=== PATIENT | female | born 1950 | race Caucasian/White ===

== ENCOUNTER → 2016-12-02 | Outpatient (CLI) | payer MEDICARE, OTHER ==
[~2016-12-02] MED LIST: AMBI10TA PO; BUTA1CAP PO; EFFE150C PO; GABA400C5 PO; IMIT100T PO; LISI-515 PO; MELO-1 PO; NAPR220T95 PO; RANI150T PO; TRAZ150T75 PO
[2016-12-02 13:14] LABS: AUTOMATED NEUTROPHIL # 3.6 TH/MM3 (1.8-7.7); BASOPHIL # 0.1 TH/MM3 (0-0.2); BASOPHIL % 0.8 % (0.0-2.0); EOSINOPHIL # 0.4 TH/MM3 (0-0.4); EOSINOPHIL % 6.5 % (0.0-4.0); HEMATOCRIT 40.6 % (35.0-46.0); HEMO FLAGS DIFF FINAL; LYMPH % 31.1 % (9.0-44.0); LYMPHOCYTE # 2.1 TH/MM3 (1.0-4.8); MEAN CELL VOLUME 90.7 FL (80.0-100.0); MEAN CORPUSCULAR HEMOGLOBIN 30.2 PG (27.0-34.0); MEAN CORPUSCULAR HGB CONC 33.3 % (32.0-36.0); MONO % 6.2 % (0.0-8.0); NEUT % 55.4 % (16.0-70.0); PLATELET COUNT 228 TH/MM3 (150-450); RED BLOOD COUNT 4.47 MIL/MM3 (4.00-5.30); RED CELL DISTRIBUTION WIDTH 15.4 % (11.6-17.2); WHITE BLOOD COUNT 6.6 TH/MM3 (4.0-11.0)
[2016-12-02 13:18] LABS: BACTERIA, URINE RARE /hpf; BLOOD, URINE NEG (NEG); GLUCOSE,URINE NEG (NEG); KETONE, URINE NEG (NEG); MUCUS URINE FEW /lpf (OCC); NITRITE,URINE NEG (NEG); SQUAMOUS EPITHELIAL CELL URINE 3 /hpf (0-5); URINE COLOR YELLOW (YELLW/STRAW)
[2016-12-02 13:31] LABS: BICARBONATE 30.1 MEQ/L (21.0-32.0); POTASSIUM 4.5 MEQ/L (3.5-5.1)
== END ==
LOC: CPRE 11:59
PROVIDERS: ATTEND Obstetrics & Gynecology
DX: Z01.812 Encounter for preprocedural laboratory examination (principal); R10.2 Pelvic and perineal pain
CPT/HCPCS: 36415; 80048; 81001; 85025

== ENCOUNTER → 2016-12-08 | Day surgery (SDC) | payer MEDICARE, OTHER ==
[~2016-12-08] VITALS: Ht 149.9 cm; Wt 93.6 kg
[~2016-12-08] MED LIST changes: +BUPIVACAINE HCL PF 0.5% 30 ML VIAL ONE; +BUPIVACAINE/EPINEPHRINE 0.5% PF 30 ML VIAL INFIL ONE; +BUPIVACAINE/EPINEPHRINE 0.5% PF 30 ML VIAL ONE; +DEXAMETHASONE SOD PHOS 4 MG/ML VIAL ONE; +DO NOT ADM ANY ANTICOAGULANT DRUGS XX PRN; +FAMOTIDINE 20 MG/2 ML VIAL ONE; +INSULIN HUMAN REGULAR 1,000 UNITS/10 ML VIAL SQ PRN; +LACTATED RINGER'S 1000 ML INJ 1,000 ML IV ONE; +LACTATED RINGER'S 1000 ML INJ 2,000 ML IV ONE; +LACTATED RINGER'S 1000 ML IV SCH; +METOPROLOL TARTRATE 25 MG TAB PO PRN; +MIDAZOLAM HCL 2 MG/2 ML VIAL ONE; +NEOSTIGMINE 3 MG/3 ML SYR IV ONE; +ONDANSETRON HCL 4 MG/2 ML VIAL IV PUSH ONE; +ONDANSETRON ODT 4 MG TAB PO PRN; +PHENYLEPH/NS 1000 MCG/10 ML SYR IV ONE; +PROPOFOL 200 MG/20 ML AMP IV ONE; +SODIUM CHLORID 0.9% 500 ML IV SCH; +VASOPRESSIN INJ 20 UNITS/ML VIAL ONE; +ceFAZolin 2 GM PREMIX 50 ML IV SCH; +ePHEDrine/NS 25 MG/5 ML SYR IV ONE; +fentaNYL CITRATE 250 MCG/5 ML AMP ONE; +oxyCODONE/ACETAMINOPHEN 5 MG/325 MG TAB PO ONE
[2016-12-08 06:45] VITALS: BP 136/80; PULSE 64; RESP 16; TEMP 98.7; O2SAT 99
--- NOTE | 2016-12-08 10:18 | HHI.DCPOC ---
Discharge Care Plan Diagnosis: (1) S/P bilateral salpingo-oophorectomy Your Health Problems Are: Incisions/drains Vaginal bleeding Report Symptoms to Your Doctor -Temperate above 100.5 degrees -Redness, of incision or excessive or foul smelling drainage -Unusual pain or calf pain -Increased vaginal bleeding -Painful or difficulty urinating Goals to Promote Your Health * To prevent worsening of your condition and complications * To maintain your health at the optimal level Directions to Meet Your Goals Take your medications as prescribed Follow your dietary instruction Follow activity as directed Ensure plenty of rest for recovery Drink fluids for hydration Keep your appointments as scheduled Take your immunizations and boosters as scheduled If your symptoms worsen call your PCP, if no PCP go to Urgent Care Center or Emergency Room Smoking is Dangerous to Your Health. Avoid second hand smoke Call the 24-hour crisis hotline for domestic abuse at Sona Ribera MD Dec 08, 2016 10:18
--- NOTE | 2016-12-08 10:23 | HHI.PR ---
Immediate Post Op Note Procedure Date: Dec 08, 2016 Pre Op Diagnosis: (1) Bilateral ovarian cysts (2) Family history of ovarian cancer Post Op Diagnosis: (1) Family history of ovarian cancer (2) Paratubal cyst Surgeon: Sona Ribera Financial Representative(s): Marium Lyle MD] Kashif Felton, MS3 [employer] COM Procedure: Exam under anesthesia, lsc bilateral salpingo-oophorectomy Findings: Atrophic ovaries bilaterally, paratubal cysts bilaterally, attenuated round ligament of left side, adhesion of bladder to lower uterine segment. Hyperactive redundant bowel. G1 cystocele. Normal appendix. Complications: none Specimen(s) removed: bilateral tubes and ovaries Estimated blood loss: minimal Anesthesia: General Drains: None Fluids: 2 L LR IVF Patient to: PACU Patient Condition: Good Sona Ribera MD Dec 08, 2016 10:23
[2016-12-08 12:09] VITALS: BP 101/60; PULSE 54; RESP 16; O2SAT 95
--- NOTE | 2016-12-09 13:13 | MP ---
cc: SONA RIBERA MD DATE OF SURGERY: 12/08/2016 PREOPERATIVE DIAGNOSIS 1. Bilateral ovarian cysts. 2. Family history of ovarian cancer. POSTOPERATIVE DIAGNOSIS Bilateral paratubal cysts. PROCEDURE PERFORMED Exam under anesthesia, laparoscopic bilateral salpingo-oophorectomy. INDICATIONS The patient is a 66-year-old female, para 2, who had a transvaginal ultrasound in clinic with multiple bilateral ovarian cysts. She had CEA and CA-125 tumor markers that were negative. She had a family history of ovarian cancer and was concerned and desired oophorectomy and additionally desired hysterectomy. SURGEON Sona Ribera MD ATTENDING SURGEON Jerri Lyle MD MICROBIOLOGY LAB ASSISTANT Kashif Botello, MS III, [employer] ANESTHESIA General endotracheal. ESTIMATED BLOOD LOSS Minimal. IV FLUIDS Two liters of LR. URINE OUTPUT 150 mL of clear yellow urine. PROPHYLAXIS Preoperative antibiotics: Ancef 2 grams IV given pre incision. DVT prophylaxis: SCDs to bilateral lower extremities. COMPLICATIONS None. COUNTS Correct. SPECIMEN Bilateral fallopian tubes and ovaries. INTRAOPERATIVE FINDINGS A morbidly obese female who on pelvic exam was noted to have a grade I cystocele. Normal cervix. Minimal uterine descent. Laparoscopically adhesions of the bladder to the lower uterine segment and scarring. Filmy adhesions of the fallopian tubes and ovaries bilaterally with paratubal cysts noted. Ovaries atrophic. Left round ligament attenuated. Normal appendix. Hyperactive bowel and redundant bowel, likely irritable bowel syndrome. PROCEDURE IN DETAIL After review of informed consent the patient was taken to the operating room where general endotracheal anesthesia was administered without complication. The abdomen and perineum were prepped and draped in normal sterile fashion and bimanual exam was performed with findings as above. A bivalve speculum was placed in the vagina. The uterus was sounded to approximately 9 cm. A Hulka uterine manipulator was placed in the cervix. The bivalve speculum was removed. A Bautista was inserted to drain the bladder. Attention was turned to the abdomen. Marcaine 0.25% with epinephrine was placed in an umbilical fold. A 5 mm skin incision was made with a scalpel. Direct visual entry was made with the camera. Due to morbid obesity, towel clamps were utilized to elevated abdomen. Of note in an attempt to elevate the abdomen for entry a superficial laceration occurred on the skin in the right lower quadrant. Abdominal placement was confirmed. The abdomen was insufflated with CO2. Survey was performed. See intraoperative findings. An accessory 5 mm right lower quadrant trocar was placed. A thorough inspection of the pelvis was performed and it was noted that the ovaries were atrophic and no large cysts were visualized. Cysts were present near the fallopian tubes. This was likely the findings on ultrasound given that the ovaries appeared normal. Given filmy adhesions with the tubes and paratubal cysts the decision was made to not proceed with a hysterectomy due to risk of bladder injury and increased co-morbidity. Due to procedure duration, patient's age and body habitus, the hysterectomy was not performed. The tube and ovary were removed with a Harmonic scalpel. The infundibulopelvic ligament was transected with a Harmonic scalpel and a lateral to medial dissection was made to the cornual region of the uterus. The right pedicle was noted to have some bleeding. The Kleppinger was used for hemostasis and Alessandro was placed subsequently after irrigation and suctioning. The tubes were placed in a laparoscopic pouch and removed through a 12 mm left lower quadrant accessory trocar without complication. The fascia was closed with a Yoan-Kerry device followed by #1 Vicryl in [id number] with good closure of the fascia. The abdomen was re-insufflated and good hemostasis noted , good maintenance of pneumoperitoneum. The subcutaneous tissue was closed with #1 Vicryl in the same 12mm trocar site. The skin at all sites was closed with 3-0 Monocryl after the abdomen was desufflated. The laparoscopic instruments were removed. Steri-Strips were placed. The bivalve speculum was placed in the vagina. The Hulka manipulator was removed. Sponge sticks, Bovie and Monsel's were used for hemostasis at the tenaculum site. The patient was removed from the dorsal lithotomy position in Simeon stirrups and placed in supine position. Anesthesia was reversed without complication. The patient was taken to the PACU under stable conditions. The findings of the surgery and the final procedure performed were reviewed with the patient multiple times and with her [id number]. Both expressed understanding as to why the hysterectomy was not performed. Sona Ribera MD PE/LISA /6:44 PM /12:47 PM MARIA LUISA
== END | disposition home or self-care (01) ==
LOC: HSDC 05:43
PROVIDERS: ATTEND Obstetrics & Gynecology
DX: N83.8 Other noninflammatory disorders of ovary, fallopian tube and broad ligament (principal); D27.9 Benign neoplasm of unspecified ovary; N83.209 Unspecified ovarian cyst, unspecified side; E66.01 Morbid (severe) obesity due to excess calories; N81.10 Cystocele, unspecified; N73.6 Female pelvic peritoneal adhesions (postinfective); Z68.41 Body mass index [BMI] 40.0-44.9, adult; Z80.41 Family history of malignant neoplasm of ovary
CPT/HCPCS: 00840; 58661; 86850; 86900; 86901; 88307; J0690; J1100; J2250; J2370; J2405; J2710; J3010; J7120; 88305